=== PATIENT | male | born 1960 | race African-American/Black ===

== ENCOUNTER 2018-11-04 12:58 | Emergency (ER) | payer OTHER ==
[2018-11-04] MEDS ORDERED: Metoprolol Tartrate 5 MG/5 ML VIAL ONE (13:33)
--- NOTE | 2018-11-04 13:34 | RAD ---
PORTABLE CHEST 1 VIEW: Date: 11/04/18 Time: 1220 hours HISTORY: Chest pain. FINDINGS/IMPRESSION: There are changes of median sternotomy. There is a left pleural effusion with adjacent infiltrate/ate lectatic change. Right lung is clear. No pneumothoraces or aaron pulmonary edema identified. POS: OFF
[2018-11-04] MEDS ORDERED: hydrALAZINE 20 MG/ML VIAL ONE (13:50)
[2018-11-04 13:51] LABS: #Basophils 0.1 thou/uL (0.0-0.2); #Eosinphils 0.2 thou/uL (0.0-0.7); #Lymphocytes 3.1 thou/uL (1.20-3.40); #Monocytes 0.5 thou/uL (0.11-0.59); #Neutrophils 3.1 thou/uL (1.40-6.50); %Basophils 1.1 % (0.0-1.0); %Eosinophils 2.8 % (0.0-10.0); %Lymphocytes 44.8 % (21.0-51.0); %Monocytes 7.2 % (0.0-10.0); %Neutrophils 44.1 % (42.0-75.0); Hemoglobin 15.5 g/dL (14.0-18.0); Mean Corpuscular HGB CONC 32.3 g/dL (32.0-36.0); Mean Corpuscular Volume 93.1 fL (78.0-98.0); Platelet Count 178 thou/uL (130-400); RBC Distribution Width 12.2 % (11.5-14.5); Red Blood Cell (RBC) Count 5.15 mill/uL (4.70-6.10); White Blood Cell (WBC) Count 6.9 thou/uL (4.8-10.8)
[2018-11-04 14:23] LABS: ALT (SGPT) 11 U/L (8-55); AST (SGOT) 9 U/L (5-34); Albumin 4.4 g/dL (3.5-5.0); Alkaline Phosphatase 129 U/L (40-150); Anion Gap 16 mmol/L (10-20); BUN (Urea Nitrogen) 14 mg/dL (8.4-25.7); Bilirubin, Total 0.8 mg/dL (0.2-1.2); CK (CPK) 92 U/L (30-200); Calc. Creatinine Clearance 0 mL/min (70-130); Calcium 9.9 mg/dL (7.8-10.44); Carbon Dioxide 23 mmol/L (22-29); Chloride 101 mmol/L (98-107); Estimated GFR-MDRD 68; Globulin 4.1 g/dL (2.4-3.5); Glucose 276 mg/dL (70-105); Lipase 9 U/L (8-78); Potassium 4.4 mmol/L (3.5-5.1); Protein, Total 8.5 g/dL (6.0-8.3); Sodium 136 mmol/L (136-145)
[2018-11-04 14:38] LABS: CKMB 1.1 ng/mL (0-6.6)
[2018-11-04] MEDS ORDERED: niCARdipine 20MG In NaCl 0 MG/0 ML BAG ONE (15:39)
== END 2018-11-04 19:42 | disposition short-term general hospital (02) ==
LOC: ERS 12:58 → EEVIPCON 12:58 → ERS 19:42
DX: I20.0 Unstable angina (principal); I16.0 Hypertensive urgency; E78.5 Hyperlipidemia, unspecified; Z79.82 Long term (current) use of aspirin; Z79.84 Long term (current) use of oral hypoglycemic drugs; Z79.891 Long term (current) use of opiate analgesic
CPT/HCPCS: 36415; 71045; 80053; 82550; 82553; 83690; 84484; 85025; 93005; 96365; 96366; 96375; J0360; J7050